=== PATIENT | female | born 1990 | race Caucasian/White ===

== ENCOUNTER 2017-06-16 09:57 | Emergency (ER) | payer BC ==
[~2017-06-16] VITALS: Ht 172.7 cm; Wt 122.5 kg
[~2017-06-16 09:57] MED LIST: ESCI20 PO; FAMO20 PO; HYDACE5 PO; IBUP400 PO; IBUP600 PO; LORA.5 PO; METF500 PO; METF500C PO; METR500 PO; NAPR500 PO; OXYACE5T PO; SERT25 PO; SERT50 PO
[2017-06-16] MEDS ORDERED: CYCL10 PO (12:01)
[2017-06-16] MEDS ORDERED: Voltaren100 GM TOP (12:01)
[2017-06-16] MEDS ORDERED: IBUP800 PO (12:01)
== END 2017-06-16 12:20 | disposition home or self-care (01) ==
LOC: ER 09:57
DX: M62.830 Muscle spasm of back (principal); Z88.5 Allergy status to narcotic agent; E11.9 Type 2 diabetes mellitus without complications; F17.200 Nicotine dependence, unspecified, uncomplicated
CPT/HCPCS: 96372; 99283; J1885

== ENCOUNTER 2018-09-30 16:41 | Observation (INO) | payer OTHER ==
[~2018-09-30] VITALS: Ht 172.7 cm; Wt 122.5 kg
[~2018-09-30 16:41] MED LIST changes: +CYCL10 PO; +IBUP800 PO; +Voltaren100 GM TOP
[2018-09-30] MEDS ORDERED: Verotin-Gr Cap1 EACH PO (17:22)
[2018-09-30 17:56] LABS: BASOPHILS ABSOLUTE AUTO 0.04 K/mm3 (0.00-0.23); BASOPHILS PERCENT AUTO 1 % (0-2); EOSINOPHILS ABSOLUTE AUTO 0.18 K/mm3 (0.00-0.68); EOSINOPHILS PERCENT AUTO 2 % (0-6); Hemoglobin 15.4 g/dL (11.5-16.0); IMMATURE GRAN ABSOLUTE AUTO 0.03 K/mm3 (0.00-0.10); IMMATURE GRAN PERCENT AUTO 0 % (0-1); LYMPHOCYTES ABSOLUTE AUTO 2.53 K/mm3 (0.84-5.20); LYMPHOCYTES PERCENT AUTO 31 % (21-46); MONOCYTES ABSOLUTE AUTO 0.57 K/mm3 (0.16-1.47); MONOCYTES PERCENT AUTO 7 % (4-13); Mean Corpuscular HGB 31.5 pg (26.0-34.0); Mean Corpuscular HGB Conc 33.5 g/dL (31.5-36.5); Mean Corpuscular Volume 94 fL (80-100); NEUTROPHILS ABSOLUTE AUTO 4.77 K/mm3 (1.96-9.15); NEUTROPHILS PERCENT AUTO 59 % (41-73); Platelet Count 174 K/mm3 (150-400); RDW Standard Deviation 44.7 fL (35.1-46.3); Red Blood Cell Count 4.89 M/mm3 (3.80-5.20); White Blood Cell Count 8.12 K/mm3 (4.00-11.30)
[2018-09-30 17:57] LABS: Mean Platelet Volume 13.1 fL (9.1-12.4)
[2018-09-30 18:27] LABS: Alanine Aminotransfer (ALT/SGP 41 U/L (12-78); Albumin, Blood 3.8 g/dL (3.4-5.0); Albumin/Globulin Ratio 1.2 (0.8-1.8); Alk Phos 49 U/L (50-136); Anion Gap 8 mmol/L (6-16); Aspartate Aminotrans (AST/SGOT 20 U/L (12-37); Beta HCG, Quantitative, Serum 300 mIU/mL (0-3); Bilirubin, Total 0.7 mg/dL (0.1-1.0); Blood Urea Nitrogen 6 mg/dL (8-24); Bun/Creatinine Ratio 7.2 (12.0-20.0); CO2, Blood 21 mmol/L (21-32); Calcium, Blood 8.6 mg/dL (8.5-10.1); Chloride, Blood 109 mmol/L (98-108); Creatinine, Blood 0.84 mg/dL (0.40-1.00); Globulin, Blood 3.3 g/dL (2.2-4.0); Glomerular Filtration Rate >60 (60-); Glucose, Blood 95 mg/dL (70-99); Sodium, Blood 138 mmol/L (136-145); Total Protein, Blood 7.1 g/dL (6.4-8.2)
[2018-09-30 18:37] LABS: Source, Urine Clean Catch
[2018-09-30 18:42] LABS: Appearance, Urine Hazy (Clear); Bilirubin, Urine Neg (Neg); Blood, Urine 5+ (Neg); Glucose Qualitative, Urine Neg (Neg); Ketones, Urine 1+ (Neg); Leukocyte Esterase, Urine 2+ (Neg); Nitrite, Urine Pos (Neg); Protein, Urine 3+ (Neg); Urobilinogen, Urine 1+ (Normal)
[2018-09-30 19:02] LABS: Color, Urine Yellow (P-Yellow)
[2018-09-30 19:03] LABS: Red Blood Cells, Urine 50-100 /hpf (0-2); White Blood Cells, Urine 25-50 /hpf (0-5)
[2018-09-30 19:04] LABS: Amorphous Light (0-Heavy); Bacteria Many /hpf; Squamous Epithelial Cells Many /hpf (Few)
--- NOTE | 2018-09-30 22:35 | NUR ---
OR RECOVERY PT ARRIVES FROM OR S/P LEFT ECTOPIC RUPTURE. PT AWAKE ALERT, FOLLOWS COMMANDS. REPORTING VAGINAL PAIN AND SOME NAUSEA, MEDICATED PER POST-OP ORDERS. NAUSEA RESOLVED AND PAIN NOW 6-7/10. PT CRYING OFF AND ON, AWARE THAT LEFT FALLOPIAN TUBE REMOVED, PT WANTED THIS VERY BADLY AND IS GRIEVING LOSS. VSS, NRB REMOVED W/ O2 SATS 99-100, PT CAN C&DB, ECG SHOWS SR IN THE 60-70'S.
--- NOTE | 2018-09-30 23:50 | NUR ---
TRANSFER REPORT GIVEN, TRANSFER VIA OR GURNEY TO ROOM 229. ASSISTED WITH STAFF TO BED VIA SLIDER, PAPERWORK LEFT W/ PT.
[2018-10-01 04:46] LABS: BASOPHILS ABSOLUTE AUTO 0.03 K/mm3 (0.00-0.23); BASOPHILS PERCENT AUTO 0 % (0-2); EOSINOPHILS PERCENT AUTO 0 % (0-6); Hematocrit 45.7 % (33.0-51.0); Hemoglobin 15.4 g/dL (11.5-16.0); IMMATURE GRAN PERCENT AUTO 1 % (0-1); LYMPHOCYTES ABSOLUTE AUTO 1.05 K/mm3 (0.84-5.20); LYMPHOCYTES PERCENT AUTO 7 % (21-46); MONOCYTES ABSOLUTE AUTO 0.16 K/mm3 (0.16-1.47); MONOCYTES PERCENT AUTO 1 % (4-13); Mean Corpuscular HGB Conc 33.7 g/dL (31.5-36.5); Mean Corpuscular Volume 95 fL (80-100); Mean Platelet Volume 12.8 fL (9.1-12.4); NEUTROPHILS ABSOLUTE AUTO 13.69 K/mm3 (1.96-9.15); NEUTROPHILS PERCENT AUTO 91 % (41-73); Platelet Count 163 K/mm3 (150-400); RDW Coefficient Variation 12.9 % (11.7-14.2); Red Blood Cell Count 4.82 M/mm3 (3.80-5.20); White Blood Cell Count 15.03 K/mm3 (4.00-11.30)
--- NOTE | 2018-10-01 05:18 | NUR ---
SHIFT SUMMARY POD#1. AAOX4. DISCOMFORT CONTROLLED WITH 1 ROXICODONE THIS SHIFT. NO NAUSEA/EMESIS. ABD INCISIONS X3 WITH SCANT SS DRAINAGE, REINFORCED WITH GAUZE. PT UP WALKING IN ROOM + TO RESTROOM, GOOD PO INTAKE + OUTPUT. SALINE LOCKED. PT RESTING IN BED THIS AM. NADN. CALL LIGHT IN REACH.
[2018-10-01] MEDS ORDERED: Colace100 MG PO (11:37)
[2018-10-01] MEDS ORDERED: IBUP800 PO (11:38)
[2018-10-01] MEDS ORDERED: Percocet 5-3251 EACH PO (11:39)
--- NOTE | 2018-10-01 12:09 | NUR ---
DISCHARGE PT EDUCATED ON AND RECEIVED PRINTED DC INSTRUCTIONS AND VERB AN UNDERSTANDING. HARD RX FOR IBUPROFEN AND PERCOCET GIVEN TO PT. IV DC'D. PT LEFT WITH ALL PERSONAL BELONGINGS AND FAMILY AT SIDE. PT ESCORTED OUT VIA W/C.
--- NOTE | 2018-10-03 14:06 | NUR ---
10/03/18 1406 Brynn Pardo VERIFICATIONS, AUDITS.
== END 2018-10-01 10:00 | disposition home or self-care (01) ==
LOC: ER 16:41 → SURS 21:32 → ER 21:33 → SURS 21:38
PROVIDERS: Physician Assistant; ADMIT Obstetrics & Gynecology
PROC: 0UT64ZZ Resection of Left Fallopian Tube, Percutaneous Endoscopic Approach (ICD-10-PCS; 2018-09-30)
PROC: 10T24ZZ Resection of Products of Conception, Ectopic, Percutaneous Endoscopic Approach (ICD-10-PCS; principal; 2018-09-30 21:00)
DX: O00.102 Left tubal pregnancy without intrauterine pregnancy (principal); E66.9 Obesity, unspecified; Z87.891 Personal history of nicotine dependence; Z88.5 Allergy status to narcotic agent; Z79.899 Other long term (current) drug therapy
CPT/HCPCS: 36415; 76801; 76817; 80053; 81001; 84702; 85025; 86850; 86900; 86901; 87086; 88305; 99285-25; G0378; J1100; J1885; J2250; J2405; J2704; J2710; J3010; J7030

== ENCOUNTER 2019-12-21 19:12 | Emergency (ER) | payer OTHER ==
[~2019-12-21] VITALS: Ht 172.7 cm; Wt 127.0 kg
[~2019-12-21 19:12] MED LIST changes: +Colace100 MG PO; +Percocet 5-3251 EACH PO; +Verotin-Gr Cap1 EACH PO
[2019-12-21 20:05] LABS: BASOPHILS ABSOLUTE AUTO 0.04 K/mm3 (0.00-0.23); BASOPHILS PERCENT AUTO 1 % (0-2); EOSINOPHILS ABSOLUTE AUTO 0.16 K/mm3 (0.00-0.68); EOSINOPHILS PERCENT AUTO 2 % (0-6); Hematocrit 44.1 % (33.0-51.0); Hemoglobin 14.9 g/dL (11.5-16.0); IMMATURE GRAN ABSOLUTE AUTO 0.03 K/mm3 (0.00-0.10); IMMATURE GRAN PERCENT AUTO 0 % (0-1); LYMPHOCYTES ABSOLUTE AUTO 2.14 K/mm3 (0.84-5.20); LYMPHOCYTES PERCENT AUTO 25 % (21-46); MONOCYTES ABSOLUTE AUTO 0.38 K/mm3 (0.16-1.47); MONOCYTES PERCENT AUTO 5 % (4-13); Mean Corpuscular HGB 31.4 pg (26.0-34.0); Mean Corpuscular HGB Conc 33.8 g/dL (31.5-36.5); Mean Corpuscular Volume 93 fL (80-100); Mean Platelet Volume 12.9 fL (9.1-12.4); NEUTROPHILS ABSOLUTE AUTO 5.71 K/mm3 (1.96-9.15); NEUTROPHILS PERCENT AUTO 67 % (41-73); Platelet Count 180 K/mm3 (150-400); RDW Coefficient Variation 12.6 % (11.7-14.2); RDW Standard Deviation 42.9 fL (35.1-46.3); Red Blood Cell Count 4.74 M/mm3 (3.80-5.20); White Blood Cell Count 8.46 K/mm3 (4.00-11.30)
[2019-12-21 20:18] LABS: Alanine Aminotransfer (ALT/SGP 31 U/L (12-78); Albumin, Blood 3.8 g/dL (3.4-5.0); Albumin/Globulin Ratio 1.1 (0.8-1.8); Alk Phos 44 U/L (50-136); Anion Gap 6 mmol/L (6-16); Aspartate Aminotrans (AST/SGOT 22 U/L (12-37); Bilirubin, Total 0.7 mg/dL (0.1-1.0); Blood Urea Nitrogen 10 mg/dL (8-24); Bun/Creatinine Ratio 10.7 (12.0-20.0); CO2, Blood 21 mmol/L (21-32); Calcium, Blood 9.2 mg/dL (8.5-10.1); Chloride, Blood 112 mmol/L (98-108); Creatinine, Blood 0.94 mg/dL (0.40-1.00); Globulin, Blood 3.6 g/dL (2.2-4.0); Glomerular Filtration Rate >60 (60-); Glucose, Blood 80 mg/dL (70-99); Potassium, Blood 4.1 mmol/L (3.5-5.5); Sodium, Blood 139 mmol/L (136-145); Total Protein, Blood 7.4 g/dL (6.4-8.2); Troponin I <0.015 ng/mL (0.000-0.040)
[2019-12-21] MEDS ORDERED: Prinivil10 MG PO (21:49)
[2019-12-21] MEDS ORDERED: BUSP10 PO (21:49)
[2019-12-21] MEDS ORDERED: BUPR100 PO (21:50)
== END 2019-12-21 22:28 | disposition home or self-care (01) ==
LOC: ER 19:12
PROVIDERS: Emergency Medicine
DX: F41.9 Anxiety disorder, unspecified (principal); R07.9 Chest pain, unspecified; F32.9 Major depressive disorder, single episode, unspecified; Z87.891 Personal history of nicotine dependence; Z79.899 Other long term (current) drug therapy; Z88.5 Allergy status to narcotic agent
CPT/HCPCS: 36415; 71046; 80053; 84484; 85025; 93005; 93010; 99285-25

== ENCOUNTER → 2020-12-06 | Outpatient (CLI) | payer OTHER ==
[~2020-12-06] MED LIST changes: +BUPR100 PO; +BUSP10 PO; +Prinivil10 MG PO
== END | disposition home or self-care (01) ==
LOC: LAB 17:39 → LAB SHORT 17:39
PROVIDERS: Family Medicine
DX: Z12.4 Encounter for screening for malignant neoplasm of cervix (principal)
CPT/HCPCS: G0123

== ENCOUNTER 2021-06-20 13:34 | Emergency (ER) | payer OTHER ==
[~2021-06-20] VITALS: Ht 172.7 cm; Wt 129.3 kg
[2021-06-20 14:30] LABS: BASOPHILS ABSOLUTE AUTO 0.03 K/mm3 (0.00-0.23); BASOPHILS PERCENT AUTO 1 % (0-2); EOSINOPHILS ABSOLUTE AUTO 0.14 K/mm3 (0.00-0.68); EOSINOPHILS PERCENT AUTO 2 % (0-6); Hematocrit 46.2 % (33.0-51.0); Hemoglobin 15.8 g/dL (11.5-16.0); IMMATURE GRAN ABSOLUTE AUTO 0.02 K/mm3 (0.00-0.10); IMMATURE GRAN PERCENT AUTO 0 % (0-1); LYMPHOCYTES ABSOLUTE AUTO 1.35 K/mm3 (0.84-5.20); LYMPHOCYTES PERCENT AUTO 23 % (21-46); MONOCYTES ABSOLUTE AUTO 0.43 K/mm3 (0.16-1.47); MONOCYTES PERCENT AUTO 7 % (4-13); Mean Corpuscular HGB 31.6 pg (26.0-34.0); Mean Corpuscular HGB Conc 34.2 g/dL (31.5-36.5); Mean Corpuscular Volume 92 fL (80-100); NEUTROPHILS ABSOLUTE AUTO 3.94 K/mm3 (1.96-9.15); NEUTROPHILS PERCENT AUTO 67 % (41-73); Platelet Count 161 K/mm3 (150-400); RDW Coefficient Variation 12.8 % (11.7-14.2); RDW Standard Deviation 43.7 fL (35.1-46.3); White Blood Cell Count 5.91 K/mm3 (4.00-11.30)
[2021-06-20 14:33] LABS: Mean Platelet Volume 13.9 fL (9.1-12.4)
[2021-06-20 14:50] LABS: Alanine Aminotransfer (ALT/SGP 35 U/L (12-78); Albumin, Blood 3.7 g/dL (3.4-5.0); Albumin/Globulin Ratio 0.9 (0.8-1.8); Alk Phos 48 U/L (50-136); Anion Gap 6 mmol/L (6-16); Aspartate Aminotrans (AST/SGOT 18 U/L (12-37); Beta HCG, Quantitative, Serum <1 mIU/mL (0-3); Bilirubin, Total 0.5 mg/dL (0.1-1.0); Blood Urea Nitrogen 10 mg/dL (8-24); Bun/Creatinine Ratio 11.2 (12.0-20.0); CO2, Blood 20 mmol/L (21-32); Calcium, Blood 8.7 mg/dL (8.5-10.1); Chloride, Blood 112 mmol/L (98-108); Creatinine, Blood 0.89 mg/dL (0.40-1.00); Globulin, Blood 3.9 g/dL (2.2-4.0); Glomerular Filtration Rate >60 (60-); Glucose, Blood 81 mg/dL (70-99); Potassium, Blood 4.2 mmol/L (3.5-5.5); Sodium, Blood 138 mmol/L (136-145); Total Protein, Blood 7.6 g/dL (6.4-8.2)
[2021-06-20 15:02] LABS: Source, Urine Clean Catch
[2021-06-20 15:18] LABS: Bilirubin, Urine Neg (Neg); Blood, Urine 5+ (Neg); Glucose Qualitative, Urine Neg (Neg); Ketones, Urine 1+ (Neg); Leukocyte Esterase, Urine 1+ (Neg); Nitrite, Urine Neg (Neg); Protein, Urine 3+ (Neg); Urobilinogen, Urine NORM (Normal)
[2021-06-20 15:24] LABS: Appearance, Urine Hazy (Clear); Color, Urine Brown (P-Yellow)
[2021-06-20 15:27] LABS: Bacteria Many /hpf; Red Blood Cells, Urine TNTC /hpf (0-2); Squamous Epithelial Cells Rare /hpf (Few)
[2021-06-20 15:29] LABS: Amorphous Light (0-Heavy); Mucus Light (0-Heavy); Yeast/Fungi Urine Few /hpf
[2021-06-20] MEDS ORDERED: [UNRECOGNIZED DRUG - OTHER] PO (16:34)
[2021-06-20] MEDS ORDERED: BUSP10 PO (16:35)
[2021-06-20] MEDS ORDERED: BUPROPION XL450 MG PO (16:35)
[2021-06-20] MEDS ORDERED: CEPH500 PO (17:26)
[2021-06-20] MEDS ORDERED: KETO10 PO (17:26)
== END 2021-06-20 18:07 | disposition home or self-care (01) ==
LOC: ER 13:34
PROVIDERS: Physician Assistant
DX: N93.8 Other specified abnormal uterine and vaginal bleeding (principal); N12 Tubulo-interstitial nephritis, not specified as acute or chronic; Z88.5 Allergy status to narcotic agent; Z79.899 Other long term (current) drug therapy; Z87.891 Personal history of nicotine dependence
CPT/HCPCS: 36415; 76830; 76856; 80053; 81001; 84702; 85025; 87086; 96374; 99284-25; J1885

== ENCOUNTER → 2023-04-06 | Outpatient (CLI) | payer OTHER ==
[~2023-04-06] MED LIST changes: +BUPROPION XL450 MG PO; +CEPH500 PO; +KETO10 PO; +[UNRECOGNIZED DRUG - OTHER] PO
== END | disposition home or self-care (01) ==
LOC: LAB SHORT 10:05 → LAB 10:05
DX: N39.0 Urinary tract infection, site not specified (principal)
CPT/HCPCS: 87077; 87086; 87186